=== PATIENT | female | born 1980 | race Caucasian/White ===

== ENCOUNTER 2017-02-18 19:15 | Emergency (ER) | payer OTHER ==
--- NOTE | 2017-02-19 19:14 | ER ---
ADMIT: 02/18/2017 RM/LOC: ER [facility] MR#: [id number] [address] [facility] [address] [place], [place] [id number] CAROLINA JAQUEZ [address] [place] [id number] Emergency Room Report SEX: F AGE: 36 : 1980 DATE: 02/18/2017 HISTORY OF PRESENT ILLNESS: The patient is a 36-year-old female, who is 9, presents to the emergency room complaining of low abdominal pain for 1 day. She says she feels like something is pinching. She denies any dysuria. No fever, chills, nausea, or vomiting. No diarrhea or back pain. PAST MEDICAL HISTORY: Fibroid and ectopic . PHYSICAL EXAMINATION: GENERAL: Well nourished, well developed. The patient is mild to moderately anxious. VITAL SIGNS: Blood pressure 123/73, heart rate is 88, respirations 18, temp is 97.7, and O2 sats 95%. ABDOMEN: Tenderness lower quadrant. DIAGNOSTIC DATA: Ultrasound; left ovarian cyst and a large masslike in the uterus. The patient notified to follow up with Dr. Tammy Carlisle for recommendation. Radiology says MRI of pelvis would be appropriate. CLINICAL IMPRESSION: 1. Abdominal pain. 2. Ovarian cyst. I advised to follow up with Dr. Tammy Carlisle. Given naproxen while in the emergency room for pain control. KEYANNA Lock / Christiano Guerrero MD / juan josel JOB #: [id number] CC: Christiano Guerrero MD, Attending Physician aTmmy Carlisle MD, Family Physician
== END 2017-02-18 23:05 | disposition home or self-care (01) ==
LOC: ER 19:15
DX: N83.202 Unspecified ovarian cyst, left side (principal)